=== PATIENT | female | born 1950 | race Caucasian/White ===

== ENCOUNTER 2017-01-08 08:00 | Day surgery (SDC) | payer OTHER ==
[2017-01-07 12:28] VITALS: BMI 22.3
[~2017-01-08] VITALS: Ht 160 cm; Wt 58.9 kg
[2017-01-08] VITALS (7 sets, daily range): BP systolic 111–180; BP diastolic 62–84; PULSE 62–72; RESP 16–30; Ht 160 cm; Wt 58.9 kg
--- NOTE | 2017-01-08 07:25 | HPN ---
Date/Time of Note Date/Time of Note DATE: 01/08/17 TIME: 07:24 Interval H&P Admission Note Pt. seen H&P reviewed: No system changes CHACHA LAU MD Jan 08, 2017 07:25
[~2017-01-08 08:00] MED LIST: BUPIVACAINE 0.75% (MPF) 10 ML INJ ONE; EPINEPHrine 1 MG INJ ONE; LIDOCAINE 1% (MPF) 10 ML INJ ONE; LIDOCAINE 2% (SDV) 5 ML INJ ONE; PHENYLephrine 10% 5 ML OPH ONE; SODIUM BICARBONATE (IV ADD) 50 ML ONE; TIMOLOL 0.5% 5 ML OPH RIGHT EYE ONE
[2017-01-08] MEDS ORDERED: CYCLOPENTOLATE 2% 2 ML OPH OPER SCH (08:30)
[2017-01-08] MEDS ORDERED: MOXIFLOXACIN 0.5% 3 ML OPH OPER SCH (08:30)
[2017-01-08] MEDS ORDERED: NEPAFENAC 0.1% 3 ML OPH OPER SCH (08:30)
[2017-01-08] MEDS ORDERED: PHENYLephrine 10% 5 ML OPH OPER SCH (08:30)
[2017-01-08] MEDS ORDERED: MIDAZOLAM 1 MG/ML 2 ML INJ ONE (08:31)
[2017-01-08] MEDS ORDERED: LISI10TA2 PO (08:56)
[2017-01-08] MEDS ORDERED: LEVO112T2 PO (08:56)
[2017-01-08] MEDS ORDERED: TIMOLOL 0.5% 5 ML OPH ONE (09:27)
[2017-01-08] MEDS ORDERED: LIDOCAINE 1% (MPF) 10 ML INJ INJ ONE (09:36)
[2017-01-08] MEDS ORDERED: CARBACHOL 0.01% 1.5 ML OPH INJ ONE (09:50)
[2017-01-08] MEDS ORDERED: PROPOFOL 20 ML ONE (10:09)
[2017-01-08] MEDS ORDERED: ONDANSETRON 4 MG INJ ONE (10:09)
[2017-01-08] MEDS ORDERED: CARBACHOL 0.01% 1.5 ML OPH INJ IO ONE (10:15)
[2017-01-08] MEDS ORDERED: hydrALAzine 20 MG INJ IV PRN (10:30)
[2017-01-08] MEDS ORDERED: LABETALOL HCL 20MG INJ IV PRN (10:30)
[2017-01-08] MEDS ORDERED: PROCHLORPERAZINE 10 MG INJ IV PRN (10:30)
[2017-01-08] MEDS ORDERED: FENTAnyl 50 MCG/ML VIAL IV PRN (10:30)
[2017-01-08] MEDS ORDERED: OXYCODONE/ACETAMINOPHEN (5/325) TAB PO PRN (10:30)
[2017-01-08] MEDS ORDERED: MEPERIDINE 25 MG INJ IV PRN (10:30)
[2017-01-08] MEDS ORDERED: DIPHENHYDRAMINE 50 MG INJ IV PRN (10:30)
[2017-01-08] MEDS ORDERED: METOCLOPRAMIDE 10 MG INJ IV PRN (10:30)
[2017-01-08] MEDS ORDERED: ONDANSETRON 4 MG INJ IV PRN (10:30)
--- NOTE | 2017-01-08 12:06 | OPR ---
DATE OF OPERATION: 01/08/2017 SURGEON: Chacha Riggs MD MEDICAL TECHNOLOGIST: None. ANESTHESIOLOGIST: PREOPERATIVE DIAGNOSIS: Senile nuclear sclerotic cataract, right eye. POSTOPERATIVE DIAGNOSIS: Senile nuclear sclerotic cataract, right eye. OPERATION: Kelman phacoemulsification with implantation of intraocular lens, right eye. PROCEDURE: Following standard preparation and draping of the patient, an aspirating lid speculum wa s placed for immobilization of the lids. A SuperBlade incision was made for access into the anterior chamber. Approximately 0.5 ml of 1% unpreserved Xylocaine was instilled into the anterior chamber, and after approximately 15 seconds, this was replaced with Viscoat. A clear corneal incision was then made using the 3.2 mm keratome, following which an anterior circul ar capsulorrhexis was made. The major portion of the lens cortex and nucleus was then dislocated fro m the capsular bag using hydrodissection. The KPE tip was introduced into the eye, and controlling m ovements of the lens with a two-handed technique, the major portion of the lens cortex and nucleus w as removed, maintaining the lens in the plane of the iris. The remaining cortical material was remov ed via the irrigating-aspirating instrument. The capsular bag and the anterior chamber were re-forme d using Viscoat. The proper power lens was then placed within the capsular bag. The viscoelastic was then removed from the eye and the eye re-formed with balanced salt solution. One 10-0 Vicryl suture was then used to ensure closure of the corneal incision. The eye was re-forme d to normal pressure using balanced salt solution. The eye and cul-de-sacs were now simply flooded w ith 5% Betadine solution. One drop of Vigamox and one drop of Betagan solution were instilled into the eye. A light pressure d ressing was applied, and the patient was returned to the recovery room in satisfactory condition. Dictated By: CHACHA MÁRQUEZ/GREGG Conf#: [id number] DID#: [id number]
== END 2017-01-08 17:45 | disposition home or self-care (01) ==
LOC: SDS 08:00
PROVIDERS: ATTEND Ophthalmology
DX: H25.11 Age-related nuclear cataract, right eye (principal); E03.9 Hypothyroidism, unspecified; I10 Essential (primary) hypertension
CPT/HCPCS: 66984; J0171; J2250; J2405; V2632; Z7512; Z7610

== ENCOUNTER → 2017-03-11 | Outpatient (CLI) | payer OTHER ==
[~2017-03-11] MED LIST changes: -BUPIVACAINE 0.75% (MPF) 10 ML INJ ONE; -EPINEPHrine 1 MG INJ ONE; +LEVO112T2 PO; -LIDOCAINE 1% (MPF) 10 ML INJ ONE; -LIDOCAINE 2% (SDV) 5 ML INJ ONE; +LISI10TA2 PO; +OPHTHALMIC IRRIG SOLUTION 120 ML ONE; +PROPARACAINE 0.5% 15 ML OPH ONE; -SODIUM BICARBONATE (IV ADD) 50 ML ONE; -TIMOLOL 0.5% 5 ML OPH RIGHT EYE ONE; +TROPICAMIDE 1% 3 ML OPH ONE
== END | disposition home or self-care (01) ==
LOC: RAD 12:08
PROVIDERS: ATTEND Ophthalmology
DX: H26.491 Other secondary cataract, right eye (principal)
CPT/HCPCS: 66821; Z7610